=== PATIENT | male | born 2000 | race Two or more races ===

== ENCOUNTER 2023-09-02 16:14 | Emergency (ER) | payer MEDICAID, OTHER ==
[~2023-09-02] VITALS: Ht 182.9 cm; Wt 120.0 kg
[2023-09-02] MEDS ORDERED: HYDROcodone-ACET 10/325MG TAB PO ONE (17:30)
[2023-09-02 17:38] VITALS: BP 119/78; PULSE 110; RESP 18; O2SAT 97
[2023-09-03] MEDS ORDERED: IBUP-1454 PO (21:49)
[2023-09-03] MEDS ORDERED: ACE3T PO (21:49)
== END 2023-09-03 00:27 | disposition left against medical advice (07) ==
LOC: ER 16:14 → EDBD 16:14 → ER 09-03 00:27
DX: S01.81XA Laceration without foreign body of other part of head, initial encounter (principal); V87.8XXA Person injured in other specified noncollision transport accidents involving motor vehicle (traffic), initial encounter; Y93.89 Activity, other specified; Y92.89 Other specified places as the place of occurrence of the external cause; Y99.8 Other external cause status
CPT/HCPCS: 12013; 99283; J2001

== ENCOUNTER 2023-09-03 11:57 | Emergency (ER) | payer MEDICAID ==
[~2023-09-03] VITALS: Ht 185.4 cm; Wt 50.8 kg
[2023-09-03 15:53] LABS: Basophils # (auto) 0 10 ^3/uL (0-0.2); Basophils % (auto) 0.5 % (0.0-2.0); Eosinophils # (auto) 0 10 ^3/uL (0-0.8); Hematocrit 35.5 % (41.0-53.0); Hemoglobin 11.4 g/dL (13.5-17.5); Lymphocytes # (auto) 0.6 10 ^3/uL (0.4-5.4); Lymphocytes % (auto) 10.5 % (10.0-50.0); Mean Corpuscular Hemoglobin 27.6 pg (28.0-32.0); Mean Corpuscular Hgb Conc. 32.2 g/dL (32.0-36.0); Mean Corpuscular Volume 85.7 fL (80.0-100.0); Monocytes # (auto) 0.4 10 ^3/uL (0-1.3); Monocytes % (auto) 6.7 % (0.0-12.0); Neutrophils # (auto) 4.9 10 ^3/uL (1.6-8.6); Neutrophils % (auto) 82.3 % (37.0-80.0); Nucleated Red Blood Cells % 0.1 %; Red Blood Cells 4.14 10^6/uL (4.5-5.90); Red Cell Distribution Width 15.4 % (11.8-14.3); White Blood Cell 5.9 10^3/uL (4.4-10.8)
[2023-09-03 16:03] LABS: Anion Gap 9 (5-15); Carbon Dioxide 24 mmol/L (20-30); Chloride 105 mmol/L (98-107); Potassium 3.4 mmol/L (3.5-5.1); Sodium 138 mmol/L (136-145)
[2023-09-03 16:05] LABS: Calcium 9.8 mg/dL (8.7-10.4)
[2023-09-03 16:09] LABS: BUN/Creatinine Ratio 8.6 (10.0-20.0); Blood Urea Nitrogen 8 mg/dL (9-23); Glucose 133 mg/dL (74-106)
[2023-09-03] MEDS ORDERED: KETOROLAC TROMETH 60MG/2ML VIAL IM ONE (20:15)
[2023-09-03] MEDS ORDERED: ACE3T PO (21:49)
[2023-09-03] MEDS ORDERED: IBUP-1454 PO (21:49)
[2023-09-04 00:22] VITALS: BP 108/80; PULSE 68; RESP 19; TEMP 98.2; O2SAT 100
[2023-09-04] MEDS: KETOROLAC TROMETH 60MG/2ML VIAL IM ONE (00:24)
== END 2023-09-04 00:24 | disposition left against medical advice (07) ==
LOC: ER 11:57
DX: S09.8XXA Other specified injuries of head, initial encounter (principal); R42 Dizziness and giddiness; X58.XXXA Exposure to other specified factors, initial encounter; Y93.89 Activity, other specified; Y92.89 Other specified places as the place of occurrence of the external cause; Y99.8 Other external cause status
CPT/HCPCS: 36415; 70486; 80048; 85025; 96372; 99285; J1885